=== PATIENT | female | born 1990 | race Two or more races ===

== ENCOUNTER 2017-06-10 19:07 | Emergency (ER) | payer OTHER ==
[~2017-06-10] VITALS: Ht 149.9 cm; Wt 98.4 kg
[2017-06-10 19:18] VITALS: BP 125/73
[2017-06-10 19:52] LABS: Basophils # (auto) 0 uL; Basophils % (auto) 0.5 % (0.0-2.0); Eosinophils # (auto) 0.1 uL; Eosinophils % (auto) 0.9 % (0.0-7.0); Hematocrit 35.4 % (36.0-46.0); Lymphocytes # (auto) 1.7 uL; Mean Corpuscular Hemoglobin 32.1 pg (28.0-32.0); Mean Corpuscular Volume 94.6 fL (80.0-100.0); Monocytes # (auto) 0.5 uL; Monocytes % (auto) 5.6 % (0.0-12.0); Neutrophils # (auto) 7.1 uL; Platelet Count (auto) 210 10^3/uL (140-450); Red Blood Cells 3.74 10^6/uL (4.0-5.20); Red Cell Distribution Width 14.8 % (11.8-14.3); White Blood Cell 9.5 10^3/uL (4.4-10.8)
[2017-06-10 20:05] LABS: Albumin 2.8 g/dL (3.4-5.0); BUN/Creatinine Ratio 18.2; Potassium 3.3 mmol/L (3.5-5.1)
[2017-06-10 20:08] LABS: Bilirubin, Total 0.2 mg/dL (0.2-1.0)
== END 2017-06-11 00:36 | disposition left against medical advice (07) ==
LOC: ER 19:17
DX: O20.9 Hemorrhage in early pregnancy, unspecified (principal); Z3A.19 19 weeks gestation of pregnancy; Z53.21 Procedure and treatment not carried out due to patient leaving prior to being seen by health care provider
CPT/HCPCS: 36415; 76805; 80053; 84702; 85025

== ENCOUNTER 2023-08-24 21:41 | Emergency (ER) | payer MEDICAID, OTHER ==
[~2023-08-24] VITALS: Ht 149.9 cm; Wt 100.0 kg
[2023-08-24 23:00] LABS: Basophils # (auto) 0 10 ^3/uL (0-0.2); Basophils % (auto) 0.8 % (0.0-2.0); Eosinophils # (auto) 0.2 10 ^3/uL (0-0.8); Eosinophils % (auto) 3.9 % (0.0-7.0); Hematocrit 38.2 % (36.0-46.0); Lymphocytes # (auto) 1.3 10 ^3/uL (0.4-5.4); Mean Corpuscular Hemoglobin 24.2 pg (28.0-32.0); Mean Corpuscular Hgb Conc. 31.5 g/dL (32.0-36.0); Mean Corpuscular Volume 76.9 fL (80.0-100.0); Monocytes # (auto) 0.9 10 ^3/uL (0-1.3); Monocytes % (auto) 13.8 % (0.0-12.0); Neutrophils # (auto) 3.8 10 ^3/uL (1.6-8.6); Neutrophils % (auto) 60.5 % (37.0-80.0); Nucleated Red Blood Cells % 0.1 %; Red Blood Cells 4.96 10^6/uL (4.0-5.20); Red Cell Distribution Width 17.9 % (11.8-14.3); White Blood Cell 6.3 10^3/uL (4.4-10.8)
[2023-08-24 23:23] LABS: Alanine Aminotransferase 18 U/L (7-40); Albumin 4.3 g/dL (3.2-4.8); Alkaline Phosphatase 74 U/L (46-116); Anion Gap 9 (5-15); Aspartate Aminotransferase 20 U/L (13-40); BUN/Creatinine Ratio 17.5 (10.0-20.0); Bilirubin, Total 0.3 mg/dL (0.2-1.0); Blood Urea Nitrogen 10 mg/dL (9-23); Calcium 9.1 mg/dL (8.7-10.4); Carbon Dioxide 21 mmol/L (20-30); Chloride 107 mmol/L (98-107); Glucose 107 mg/dL (74-106); Potassium 3.5 mmol/L (3.5-5.1); Sodium 137 mmol/L (136-145); Total Protein 7.6 g/dL (5.7-8.2)
[2023-08-25] MEDS ORDERED: CYCL-839 PO (02:54)
[2023-08-25] MEDS ORDERED: IBUP1TAB5 PO (02:54)
[2023-08-25 05:18] VITALS: BP 106/70; PULSE 71; RESP 22; TEMP 98.2; O2SAT 95
== END 2023-08-25 05:29 | disposition home or self-care (01) ==
LOC: ER 21:41 → EDBD 21:41 → ER 08-25 05:25
DX: S29.011A Strain of muscle and tendon of front wall of thorax, initial encounter (principal); R10.2 Pelvic and perineal pain; X58.XXXA Exposure to other specified factors, initial encounter; Y93.89 Activity, other specified; Y92.89 Other specified places as the place of occurrence of the external cause; Y99.8 Other external cause status
CPT/HCPCS: 36415; 71111; 80053; 84484; 84702; 85025; 85379; 93005

== ENCOUNTER 2025-02-20 10:49 | Emergency (ER) | payer MEDICAID, OTHER ==
[~2025-02-20] VITALS: Ht 149.9 cm; Wt 86.5 kg
[~2025-02-20 10:49] MED LIST: CYCL-839 PO; IBUP1TAB5 PO
--- NOTE | 2025-02-20 12:33 | ED.PDOC ---
HPI Allergic reaction HPI Comments 34 year old female presents to the ED with a chief complaint of facial swelling onset 1 day. Patient states she [facility], about an hour after getting home she noticed LT side facial swelling. This morning, she noticed bilateral eyes swelling, top lip swelling, was told to come to ED. P:4 AL7. Denies chest pain, shortness of breath, blurry vision, nausea, vomiting, diarrhea, headache. No other symptoms or modifying factors present at this time. Chief Complaint: Allergic Reaction Time Seen by MD: 11:40 Primary Care Provider: HARIKA Reviewed Notes: Medications, Allergies Allergies: Coded Allergies: NO KNOWN ALLERGIES (Unverified , 06/10/17) Home Meds Active Scripts Cyclobenzaprine Hcl (Cyclobenzaprine Hcl) 10 Mg Tab, 1 TAB PO Q8HPRN PRN, #15 TAB As needed for muscle spasm Prov:JOSEP FUNG Q LENS GENERATING MACHINE TENDER 08/25/23 Ibuprofen Micronized (Ibuprofen) 600 Mg Tab, 1 TAB PO Q8HPRN PRN, #20 TAB as needed for pain Prov:JOSEP FUNG LENS GENERATING MACHINE TENDER 08/25/23 Information Source: Patient Mode of Arrival: Ambulatory Severity: Moderate Timing: Days Duration: Since onset Prehospital treatment: None Location: Eyes, Lips Exposed to: Unknown Past Medical History PAST MEDICAL HISTORY: Denies Surgical History: Denies all surgeries APPLICATION SUPPORT ANALYST History: No Pertinent APPLICATION SUPPORT ANALYST History Family History Family History: Reviewed,noncontributory to illness, No family hx of Cancer, No family hx of DM, No family hx of Heart megan, No family hx of HTN, No family hx ofKidney megan, No family hx of Liver megan, No family hx of Lung megan, No family hx of Stroke Social History Smoker: Non-Smoker Alcohol: Denies ETOH Use Drugs: Denies Drug Use Constitutional: denies: chills, diaphoresis, fatigue, fever, malaise, sweats, weakness, others EENTM: denies: blurred vision, double vision, ear bleeding, ear discharge, ear drainage, ear pain, ear ringing, eye pain, eye redness, hearing loss, mouth pain, mouth swelling, nasal discharge, nose bleeding, nose congestion, nose pain, photophobia, tearing, throat pain, throat swelling, voice changes, others Respiratory: denies: cough, hemoptysis, orthopnea, SOB at rest, shortness of breath, SOB with excertion, stridor, wheezing, others Cardiovascular: denies: chest pain, dizzy spells, diaphoresis, Dyspnea on exertion, edema, irregular heart beat, left arm pain, lightheadedness, palpitations, PND, syncope, others Gastrointestinal: denies: abdomen distended, abdominal pain, blood streaked bowels, constipated, diarrhea, dysphagia, difficulty swallowing, hematemesis, melena, nausea, poor appetite, poor fluid intake, rectal bleeding, rectal pain, vomiting, others Genitourinary: denies: abnormal vagina bleeding, burning, dyspareunia, dysuria, flank pain, frequency, hematuria, incontinence, pain, , vagina discharge, urgency, others Neurological: denies: dizziness, fainting, headache, left sided numbness, left sided weakness, numbness, paresthesia, pre-existing deficit, right sided numbness, right sided weakness, seizure, speech problems, tingling, tremors, weakness, others Musculoskeletal: denies: back pain, gout, joint pain, joint swelling, muscle pain, muscle stiffness, neck pain, others Integumetry: reports: others (facial swelling); denies: bruises, change in color, change in hair/nails, dryness, laceration, lesions, lumps, rash, wounds Allergic/Immunocompromised: denies: Difficulty Healing, Frequent Infections, Hives, Itching, others Hematologic/Lymphatic: denies: anemia, blood clots, easy bleeding, easy bruising, swollen glands, others Endocrine: denies: excessive hunger, excessive sweating, excessive thirst, excessive urination, flushing, intolerance to cold, intolerance to heat, unexplained weight gain, unexplained weight loss, others Psychiatric: denies: anxiety, bipolar disorder, depression, hopeless, panic disorder, schizophrenia, sleepless, suicidal, others All Other Systems: Reviewed and Negative Physical Exam General Appearance: Moderate Distress, Normal HEENT: Normal ENT Inspection, Pharynx Normal, TMs Normal Neck: Full Range of Motion, Non-Tender, Normal, Normal Inspection Respiratory: Chest Non-Tender, Lungs Clear, No Accessory Muscle Use, No Respiratory Distress, Normal Breath Sounds Cardiovascular: No Edema, No JVD, No Murmur, No Gallop, Normal Peripheral Pulses, Regular Rate/Rhythm Breast Exam: Deferred Gastrointestinal: No Organomegaly, Non Tender, No Pulsatile Mass, Normal Bowel Sounds, Soft Genitalia: Deferred Pelvic: Deferred Rectal: Deferred Extremities: No calf tenderness, Normal capillary refill, Normal inspection, Normal range of motion, Non-tender, No pedal edema Musculoskeletal : Apperance: Normal Neurologic: Alert, calculator operator II-XII nml as Tested, No Motor Deficits, Normal Affect, Normal Mood, No Sensory Deficits Cerebellar Function: Normal Reflexes: Normal Skin: Dry, Normal Color, Warm Peripheral Pulses: 3+ Radial (R), 3+ Radial (L) Lymphatic: No Adenopathy Was a procedure done? Was a procedure done?: No Differential diagnosis (all) Differential Diagnosis: Anaphylaxis, Drug Reaction X-Ray, Labs, Meds, VS Vital Signs Date Time Temp Pulse Resp B/P (MAP) Pulse Ox O2 Delivery O2 Flow Rate FiO2 02/20/25 11:22 98.3 64 16 133/70 (91) 97 98.3 Patient alert. Mild swelling of the eyelids. Vitals stable. Answering questions. No sign of any distress. Was given prescription of prednisone. Explained to the patient. Was told to follow up with her primary care physician. Was told to come back if there is any problem. Time of 1ST Reevaluation: 12:10 Reevaluation 1ST: Improved Patient Education/Counseling: Diagnosis, Treatment, Prognosis Family Education/Counseling: No Family Present SEPSIS Sepsis Screen Date sepsis recognized/suspect: Feb 20, 2025 Time Sepsis recognized/suspect: 1122 Recent Procedure: Yes (TERMINATION OF PREG YESTERDAY) On Antibiotic Therapy: No Respiratory Rate >20: No Heart Rate >90: No Temp<36 C (96.8 F) or >38.3 C: No SBP <90 or MAP <65 mmHG: No New Acute Mental Status Change: No Is the patient on CPAP, BIPAP,: No Vital Signs Date Time Temp Pulse Resp B/P (MAP) Pulse Ox O2 Delivery O2 Flow Rate FiO2 02/20/25 11:22 98.3 64 16 133/70 (91) 97 98.3 Departure 1 Departure Time of Disposition: 14:52 Impression: Primary Impression: Allergic reaction Qualified Codes: T78.40XA - Allergy, unspecified, initial encounter Disposition: HOME / SELF CARE / HOMELESS Condition: Good e-Prescriptions Prednisone (Prednisone) 10 Mg Tab 10 MG PO BS for 7 Days, #7 MG Prov: NOHELIA WEEMS MD 02/20/25 Discharged With: Self Critical Care Note Critical Care Time?: No Stability Stability form required: No Heart Score Heart Score: Heart Score Response (Comments) Value History N/A 0 EKG N/A 0 Age N/A 0 Risk Factors N/A 0 Troponin N/A 0 Total 0 I personally scribed for NOHELIA WEEMS MD ([email or web address]) on 02/20/25 at 12:33. Electronically submitted by Chelsy Merritt ([email or web address]). NOHELIA WEEMS MD Feb 20, 2025 12:33
[2025-02-20] MEDS ORDERED: PRED10TA PO (14:53)
[2025-02-20] MEDS: methylPREDNISolone SOD SUCC 125 MG/2 ML VL IM ONE (15:08)
[2025-02-20 15:17] VITALS: BP 130/85; PULSE 83; RESP 20; TEMP 97.9; O2SAT 99
== END 2025-02-20 15:22 | disposition home or self-care (01) ==
LOC: ER 10:49
DX: T78.40XA Allergy, unspecified, initial encounter (principal); Z79.899 Other long term (current) drug therapy; X58.XXXA Exposure to other specified factors, initial encounter
CPT/HCPCS: 96372; 99283; J2919

== ENCOUNTER 2025-06-20 23:35 | Emergency (ER) | payer MEDICAID ==
[~2025-06-20] VITALS: Ht 149.9 cm; Wt 81.7 kg
[~2025-06-20 23:35] MED LIST changes: +PRED10TA PO
[2025-06-21 00:35] LABS: Hemoglobin 13.5 g/dL (12.2-16.2)
[2025-06-21 00:36] LABS: Hematocrit 40.2 % (36.0-46.0); Mean Corpuscular Hemoglobin 27.1 pg (28.0-32.0); Mean Corpuscular Volume 80.7 fL (80.0-100.0); Nucleated Red Blood Cells % 0.1 %
[2025-06-21 00:52] LABS: Alanine Aminotransferase 17 U/L (7-40); Alkaline Phosphatase 81 U/L (46-116); Anion Gap 12 (5-15); BUN/Creatinine Ratio 12.3 (10.0-20.0); Calcium 9.7 mg/dL (8.7-10.4); Carbon Dioxide 24 mmol/L (20-31); Chloride 104 mmol/L (98-107); Glucose 101 mg/dL (74-106); Lipase 37 U/L (12-53); Potassium 4.2 mmol/L (3.5-5.1); Sodium 140 mmol/L (136-145)
[2025-06-21 00:53] LABS: Bilirubin, Total 0.5 mg/dL (0.2-1.0)
[2025-06-21 01:00] LABS: Albumin 4.9 g/dL (3.2-4.8); Blood Urea Nitrogen 8 mg/dL (9-23); Total Protein 8.3 g/dL (5.7-8.2)
--- NOTE | 2025-06-21 01:24 | DVH ---
MEDICAL RECORDS NUMBER: [id number] PROCEDURE: CT CT AB PEL WO CON-NO ORAL OR IV DATE: 06/21/2025 12:40 AM HISTORY: abd pain TECHNIQUE: CT of the abdomen and pelvis is performed without IV contrast. CONTRAST: none Oral Contrast: No oral contrast was utilized. COMPARISON: CT ABD/PEL on DOS: 03/20/22 RADIATION DOSE INFORMATION: Automated exposure control dose reduction techniques were used. FINDINGS: Lung bases: Limited evaluation of the lung bases demonstrates no focal airspace process or pneumothorax. Mediastinum:Lower mediastinal structures appear unremarkable. Liver: The liver is normal in size. There is no focal liver lesion. Biliary ducts: There is no evidence of intrahepatic or extrahepatic biliary ductal dilatation. Gallbladder: No abnormality is seen of the gallbladder. Spleen: The spleen is normal in size without focal lesion. Stomach: The stomach appears unremarkable. Pancreas: The pancreas is unremarkable. Adrenal glands: The adrenal glands are unremarkable. Kidneys: The kidneys are normal in size and are symmetric. There is no evidence of hydronephrosis. No focal renal lesion is noted. Aorta and IVC: The aorta and IVC are patent and are normal in size. Mesenteric vessels: Major mesenteric vessels appear to be intact. Bowel: The visualized portions of the small and large bowel are normal in caliber. Appendix: The appendix is unremarkable. Pelvis: 2.5 cm right ovarian cyst is suspected. Lymph nodes: There is no evidence of lymphadenopathy. Osseous structures: The osseous structures are intact. No lytic or blastic osseous lesion is noted. Pars defect is noted of L5 on the right Free fluid/free air: None IMPRESSION: 1. No acute process is seen. No findings are seen to explain the patient's symptoms.
[2025-06-21] MEDS ORDERED: DICY10CA PO (01:46)
--- NOTE | 2025-06-21 01:47 | ED.PDOC ---
GI ASSESSMENT HPI Comments 34-year-old female brought in by EMS. Patient complaining of right-sided abdominal pain x1 day. He reports the pain as 8/10. Sharp in nature. States the pain does radiate to the left side with certain movements. States normal bowel movement yesterday. No bowel movement today. No new foods no new medications. Last menstrual period was 06/13. Patient reports no abdominal surgeries. No prior history of this. Chief Complaint: Abdominal Pain Time Seen by MD: 23:38 Primary Care Provider: HARIKA Reviewed Notes: Nurses Notes Allergies: Coded Allergies: NO KNOWN ALLERGIES (Unverified , 06/10/17) Home Meds Active Scripts Prednisone (Prednisone) 10 Mg Tab, 10 MG PO BS for 7 Days, #7 MG Prov:NOHELIA WEEMS MD 02/20/25 Cyclobenzaprine Hcl (Cyclobenzaprine Hcl) 10 Mg Tab, 1 TAB PO Q8HPRN PRN, #15 TAB As needed for muscle spasm Prov:JOSEP FUNG Q DAY HABILITATION SPECIALIST 08/25/23 Ibuprofen Micronized (Ibuprofen) 600 Mg Tab, 1 TAB PO Q8HPRN PRN, #20 TAB as needed for pain Prov:FUNGJOSEP Q DAY HABILITATION SPECIALIST 08/25/23 Information Source: Patient Mode of Arrival: EMS Past Medical History PAST MEDICAL HISTORY: Denies Surgical History: Denies all surgeries CHIEF ANALYTICS OFFICER History: No Pertinent CHIEF ANALYTICS OFFICER History Family History Family History: Reviewed,noncontributory to illness, No family hx of Cancer, No family hx of DM, No family hx of Heart megan, No family hx of HTN, No family hx ofKidney megan, No family hx of Liver megan, No family hx of Lung megan, No family hx of Stroke Social History Smoker: Non-Smoker Alcohol: Denies ETOH Use Drugs: Denies Drug Use Constitutional: denies: chills, diaphoresis, fatigue, fever, malaise, sweats, weakness, others EENTM: denies: blurred vision, double vision, ear bleeding, ear discharge, ear drainage, ear pain, ear ringing, eye pain, eye redness, hearing loss, mouth pain, mouth swelling, nasal discharge, nose bleeding, nose congestion, nose pain, photophobia, tearing, throat pain, throat swelling, voice changes, others Respiratory: denies: cough, hemoptysis, orthopnea, SOB at rest, shortness of breath, SOB with excertion, stridor, wheezing, others Cardiovascular: denies: chest pain, dizzy spells, diaphoresis, Dyspnea on exertion, edema, irregular heart beat, left arm pain, lightheadedness, palpitations, PND, syncope, others Gastrointestinal: reports: abdominal pain; denies: abdomen distended, blood streaked bowels, constipated, diarrhea, dysphagia, difficulty swallowing, hematemesis, melena, nausea, poor appetite, poor fluid intake, rectal bleeding, rectal pain, vomiting, others Genitourinary: denies: abnormal vagina bleeding, burning, dyspareunia, dysuria, flank pain, frequency, hematuria, incontinence, pain, , vagina discharge, urgency, others Neurological: denies: dizziness, fainting, headache, left sided numbness, left sided weakness, numbness, paresthesia, pre-existing deficit, right sided numbness, right sided weakness, seizure, speech problems, tingling, tremors, weakness, others Musculoskeletal: denies: back pain, gout, joint pain, joint swelling, muscle pain, muscle stiffness, neck pain, others Integumetry: denies: bruises, change in color, change in hair/nails, dryness, laceration, lesions, lumps, rash, wounds, others Allergic/Immunocompromised: denies: Difficulty Healing, Frequent Infections, Hives, Itching, others Hematologic/Lymphatic: denies: anemia, blood clots, easy bleeding, easy bruising, swollen glands, others Physical Exam General Appearance: No Apparent Distress, Normal HEENT: Normal ENT Inspection, Pharynx Normal, TMs Normal Neck: Full Range of Motion, Non-Tender, Normal, Normal Inspection Respiratory: Chest Non-Tender, Lungs Clear, No Accessory Muscle Use, No Respiratory Distress, Normal Breath Sounds Cardiovascular: No Edema, No JVD, No Murmur, No Gallop, Normal Peripheral P ulses, Regular Rate/Rhythm Breast Exam: Deferred Gastrointestinal: Diffuse (Diffuse lower abdominal pain, abdomen is soft, round, no rebound tenderness.), No Pulsatile Mass, Normal Bowel Sounds, Soft Genitalia: Deferred Pelvic: Deferred Rectal: Deferred Extremities: No calf tenderness, Normal capillary refill, Normal inspection, Normal range of motion, Non-tender, No pedal edema Musculoskeletal : Apperance: Normal Neurologic: Alert, welding robot operator II-XII nml as Tested, No Motor Deficits, Normal Affect, Normal Mood, No Sensory Deficits Cerebellar Function: Normal Reflexes: Normal Skin: Dry, Normal Color, Warm Lymphatic: No Adenopathy Was a procedure done? Was a procedure done?: No GI differential Dx Differential Diagnosis: Appendicitis, Complete , Cholecystitis, Constipation, Gastritis/PUD, Gastroenteritis, GI hemorrhage, UTI X-Ray, Labs, Meds, VS Vital Signs Date Time Temp Pulse Resp B/P (MAP) Pulse Ox O2 Delivery O2 Flow Rate FiO2 06/20/25 23:49 98.2 82 18 143/108 96 98.2 Lab Test 06/21/25 00:10 Range/Units White Blood Count 9.5 4.4-10.8 10^3/uL Red Blood Count 4.98 4.0-5.20 10^6/uL Hemoglobin 13.5 12.2-16.2 g/dL Hematocrit 40.2 36.0-46.0 % Mean Corpuscular Volume 80.7 80.0-100.0 fL Mean Corpuscular Hemoglobin 27.1 L 28.0-32.0 pg Mean Corpuscular Hemoglobin Concent 33.5 32.0-36.0 g/dL Red Cell Distribution Width 15.3 H 11.8-14.3 % Platelet Count 332 140-450 10^3/uL Mean Platelet Volume 9.0 6.9-10.8 fL Neutrophils (%) (Auto) 67.7 37.0-80.0 % Lymphocytes (%) (Auto) 23.2 10.0-50.0 % Monocytes (%) (Auto) 6.0 0.0-12.0 % Eosinophils (%) (Auto) 1.9 0.0-7.0 % Basophils (%) (Auto) 1.2 0.0-2.0 % Neutrophils # (Auto) 6.4 1.6-8.6 10 ^3/uL Lymphocytes # (Auto) 2.2 0.4-5.4 10 ^3/uL Monocytes # (Auto) 0.6 0-1.3 10 ^3/uL Eosinophils # (Auto) 0.2 0-0.8 10 ^3/uL Basophils # (Auto) 0.1 0-0.2 10 ^3/uL Nucleated Red Blood Cells 0.1 % Sodium Level 140 136-145 mmol/L Potassium Level 4.2 3.5-5.1 mmol/L Chloride Level 104 98-107 mmol/L Carbon Dioxide Level 24 20-31 mmol/L Anion Gap 12 5-15 Blood Urea Nitrogen 8 L 9-23 mg/dL Creatinine 0.65 0.550-1.02 mg/dL Glomerular Filtration Rate Calc 118 >90 mL/min BUN/Creatinine Ratio 12.3 10.0-20.0 Serum Glucose 101 74-106 mg/dL Calcium Level 9.7 8.7-10.4 mg/dL Total Bilirubin 0.5 0.2-1.0 mg/dL Aspartate Amino Transferase (AST) 21 13-40 U/L Alanine Aminotransferase (ALT) 17 7-40 U/L Alkaline Phosphatase 81 46-116 U/L Total Protein 8.3 H 5.7-8.2 g/dL Albumin 4.9 H 3.2-4.8 g/dL Lipase 37 12-53 U/L X-Ray, Labs, Meds, VS Comment Imaging was reviewed by this provider, there is no obvious pathological or acute disease process. Pending radiology review Labs were reviewed by this provider, no abnormalities Vital signs reviewed by this provider, clinically stable Time of 1ST Reevaluation: 01:46 Reevaluation 1ST: Improved Patient Education/Counseling: Diagnosis, Treatment, Need For Follow Up (Follow up with PCP next available appointment. Return emergency department if symptoms worsen.) Family Education/Counseling: Diagnosis, Treatment SEPSIS Sepsis Screen Date sepsis recognized/suspect: Jun 20, 2025 Time Sepsis recognized/suspect: 2353 Recent Procedure: No On Antibiotic Therapy: No Respiratory Rate >20: No Heart Rate >90: No Temp<36 C (96.8 F) or >38.3 C: No SBP <90 or MAP <65 mmHG: No New Acute Mental Status Change: No Is the patient on CPAP, BIPAP,: No Physician Orders Urinalysis (06/20/25 23:59) Ct Ab Pel Wo Con-No Oral Or Iv (06/20/25 23:59) Lidocaine 2% Viscous (Xylocaine 2% Visco (06/21/25 01:45) Alum & Mag Hydrox-Simethicone (Maalox Pl (06/21/25 01:45) Vital Signs Date Time Temp Pulse Resp B/P (MAP) Pulse Ox O2 Delivery O2 Flow Rate FiO2 11/17/25 23:49 98.2 82 18 143/108 96 98.2 Laboratory Tests Test 06/21/25 00:10 White Blood Count 9.5 10^3/uL (4.4-10.8) Departure 1 Departure Time of Disposition: 01:44 Impression: Primary Impression: Gastritis Qualified Codes: K29.00 - Acute gastritis without bleeding Disposition: HOME / SELF CARE / HOMELESS Condition: Stable e-Prescriptions Dicyclomine Hcl (BENTYL CAPSULE) 10 Mg Cp 1 CAP PO TID PRN, #60 CAP 11 Refills Prov: LENNY RAY 06/21/25 Discharged With: Self Critical Care Note Critical Care Time?: No Stability Stability form required: No Heart Score Heart Score: Heart Score Response (Comments) Value History N/A 0 EKG N/A 0 Age N/A 0 Risk Factors N/A 0 Troponin N/A 0 Total 0 LENNY RAY Jun 21, 2025 01:47
[2025-06-21] MEDS: MAALOX PLUS or MAALOX 30 ML PO ONE (03:13)
[2025-06-21] MEDS: LIDOCAINE VISCOUS 2% 15ML UD MT ONE (03:13)
[2025-06-21 03:15] VITALS: BP 140/58; PULSE 70; RESP 18; TEMP 97.9; O2SAT 96
== END 2025-06-21 03:20 | disposition home or self-care (01) ==
LOC: ER 23:35 → EDBD 23:35 → ER 06-21 03:20
DX: K29.70 Gastritis, unspecified, without bleeding (principal)
CPT/HCPCS: 36415; 74176; 80053; 83690; 85025